=== PATIENT | female | born 1980 | race Caucasian/White ===

== ENCOUNTER 2022-06-19 17:25 | Emergency (ER) | payer OTHER, SELFPAY ==
[2022-06-19 17:33] VITALS: BP 133/87; PULSE 89; RESP 16; TEMP 36.6; O2SAT 99
--- NOTE | 2022-06-19 17:33 | ED.LOWEXIN ---
HPI - Extremity Injury (Lower) General Chief Complaint: Skin/Abscess/Foreign Body Stated Complaint: Rt leg pain and swelling Time Seen by Provider: 06/19/22 17:34 Source: patient and RN notes reviewed History of Present Illness HPI Narrative: Patient is a 41-year-old female presents the urgent care with complaints of cellulitis to the right leg. Patient states that 1 week ago she was stung by a wasp and then proceeded to swim in [facility]. Patient states that 24 hours ago she was placed on ciprofloxacin by her primary care doctor. States that she called them last night telling them that the redness and swelling was getting larger and they advise she go to the emergency room. Patient states that the pain has increased slightly and the redness has spread. Denies any shortness of breath or chest pain. Denies of any history of DVT. Denies any fevers, nausea or vomiting. No other acute complaints. No acute distress noted. Patient read the plan of care. Some parts of this dictation were generated by voice recognition software and may contain typographical and/or grammatical inaccuracies. Related Data Home Medications Medication Instructions Recorded Confirmed clindamycin HCl 300 mg capsule 300 mg PO TID 06/19/22 06/19/22 Allergies Allergy/AdvReac Type Severity Reaction Status Date / Time No Known Allergies Allergy Verified 06/19/22 17:35 Review of Systems Review of Systems: CONSTITUTIONAL: Denies fever, chills, or sweats. EYES: Denies visual changes, redness, or discharge. ENT: Denies rhinorrhea, congestion, sore throat, or otalgia. CARDIOVASCULAR: Denies chest pain, palpitations, or edema. RESPIRATORY: Denies cough or dyspnea. GASTROINTESTINAL: Denies abdominal pain, nausea, vomiting, or diarrhea. GENITOURINARY: Denies dysuria or hematuria. SKIN: Denies rash or itching. MUSCULOSKELETAL: Reports of pain, swelling and redness to the right leg NEUROLOGIC: Denies headache, numbness, or weakness. All other systems reviewed are negative, except as documented in HPI. PMFSH Comments At the time of my signature, I reviewed and agree with the nursing past medical, surgical, social, and family history. There is no relevant family history pertinent to the patient complaint. Exam Narrative: GENERAL: This is a well-nourished, well-developed patient, in no apparent distress. HEAD: normocephalic, atraumatic. EYES: PERRL. Sclera clear/white. Vision is grossly intact. EARS: External ears normal NOSE: External nose normal with no obvious nasal discharge, nares without redness, no rhinorrhea. THROAT: Mucous membranes moist NECK: Neck supple CARDIOVASCULAR: Regular rate and rhythm without murmurs, gallops, or rubs. RESPIRATORY: Clear to auscultation. Breath sounds equal bilaterally. No wheezes, rales, or rhonchi. SKIN: 17 x 14 cm area of irregular mildly edematous erythema to the lateral aspect of the right lower leg. Warm, intact with no suspicious lesions or rash, good texture and turgor. NEURO: awake, alert, and oriented to person, place and time. There were no obvious focal neurologic abnormalities. EXTREMITIES: 13.5 cm circumference of the right calf. No pitting edema. Positive strong right pedal pulse with capillary refill less than 2 seconds. Course Course Level of Care: Express Care Visit Vital Signs Vital signs: Vital Signs Temperature 97.9 F 06/19/22 17:33 Pulse Rate 89 06/19/22 17:33 Respiratory Rate 16 06/19/22 17:33 Blood Pressure 133/87 06/19/22 17:33 Pulse Oximetry 99 06/19/22 17:33 Oxygen Delivery Room Air 06/19/22 17:33 Temperature 97.9 F 06/19/22 17:33 Pulse Rate 89 06/19/22 17:33 Respiratory Rate 16 06/19/22 17:33 Blood Pressure 133/87 06/19/22 17:33 Pulse Oximetry 99 06/19/22 17:33 Oxygen Delivery Room Air 06/19/22 17:33 Reviewed MDM - Extremity Injury (Lower) MDM Narrative Medical decision making narrative: Advised patient to stop the clindamycin.
== END 2022-06-19 17:58 | disposition home or self-care (01) ==
PROVIDERS: Emergency Provider Nurse Practitioner Family; PCP Nurse Practitioner
DX: L03.115 Cellulitis of right lower limb (principal)
CPT/HCPCS: 99203; G0463

== ENCOUNTER 2025-05-29 10:32 | Emergency (ER) | payer SELFPAY ==
[2025-05-29 10:42] VITALS: BP 129/81; PULSE 71; RESP 18; TEMP 36.2; O2SAT 100
[2025-05-29 11:25] LABS: EDCOVIDSCREEN Negative (Negative); EDINFLUASCREEN Negative (Negative); EDINFLUBSCREEN Negative (Negative)
--- NOTE | 2025-05-29 11:30 | ED_ITS ---
HPI - URI/Sore Throat General Chief Complaint: Skin/Abscess/Foreign Body Stated Complaint: Face Pain Source: patient Mode of arrival: ambulatory Limitations: no limitations History of Present Illness HPI Narrative: Patient is a 44-year-old female who presents to the clinic with complaints with left-sided jaw pain and fatigue x 2 days. She states that last week she was told she had a swollen lymph node on the left side of her neck and a sore throat, but the sore throat has subsided since. She also endorses the lymph node is smaller than last week. She states that she has been taking Tylenol and ibuprofen ove [id number], but has had minimal relief. Denies any shortness of breath, difficulty swallowing, fevers, chills, nausea, vomiting, or diarrhea. Related Data Home Medications ?Medication ?Instructions ?Recorded ?Confirmed ?Last Taken ?Type No Home Medications 05/29/25 05/29/25 Unknown History Allergies Allergy/AdvReac Type Severity Reaction Status Date / Time No Known Allergies Allergy Verified 05/29/25 10:39 Review of Systems Review of Systems: CONSTITUTIONAL: Denies body aches, fever, chills, or sweats. EYES: Denies visual changes, redness, or discharge. ENT: Denies rhinorrhea, congestion, sore throat, or otalgia. Reports left- sided jaw pain and swollen lymph node to the left side.. CARDIOVASCULAR: Denies chest pain, palpitations, or edema. RESPIRATORY: Denies cough or dyspnea. GASTROINTESTINAL: Denies abdominal pain, nausea, vomiting, or diarrhea. GENITOURINARY: Denies dysuria or hematuria. SKIN: Denies rash, itching, or wounds. MUSCULOSKELETAL: Denies back pain, joint pain, or myalgia. NEUROLOGIC: Denies headache, numbness, tingling, or weakness. PSYCH: Denies depression or anxiety. All systems reviewed & are unremarkable except as noted in HPI and below PMFSH Comments At time of signature, I have reviewed and agree with nursing past medical, surgical, social and family history unless otherwise noted. Please see nursing chart for further information. There is no relevant family history pertinent to the presenting complaint. Exam Narrative: GENERAL: Well-appearing, well-nourished, and in no acute distress. EYES: EOMI. No redness or drainage. Conjunctivae normal. ENT: Mucous membranes pink and moist. Nares clear. No rhinorrhea. TMs fluid filled but intact. No throat erythema or tonsillar exudate, uvula midline. No drooling, no hoarseness, no trismus. No tripod positioning, hot potato voice, or soft palate swelling. NECK: Normal AROM. Supple. Lymphadenopathy noted to left anterior cervical chain with tenderness to palpation. CHEST: No respiratory distress. Clear to auscultation. HEART: Regular rate and rhythm. No murmur appreciated. Normal peripheral pulses. ABDOMEN: Soft, nontender, nondistended, normal active bowel sounds. SKIN: Warm, dry, no rash. Capillary refill normal. Normal skin turgor. NEURO: No focal deficits. Alert and oriented x3. Gait steady. PSYCH: Normal affect. No signs of depression or anxiety. Course Course Level of Care: Express Care Visit Vital Signs Vital signs: Vital Signs Temperature 97.2 F L 05/29/25 10:42 Pulse Rate 71 05/29/25 10:42 Respiratory Rate 18 05/29/25 10:42 Blood Pressure 129/81 05/29/25 10:42 Pulse Oximetry 100 05/29/25 10:42 Oxygen Delivery Room Air 05/29/25 10:42 Temperature 97.2 F L 05/29/25 10:42 Pulse Rate 71 05/29/25 10:42 Respiratory Rate 18 05/29/25 10:42 Blood Pressure 129/81 05/29/25 10:42 Pulse Oximetry 100 05/29/25 10:42 Oxygen Delivery Room Air 05/29/25 10:42 Reviewed MDM - URI/Sore Throat MDM Narrative Medical decision making narrative: Discussed physical exam findings. Flu/ Covid negative. [place] offered, but patient declined. Symptoms likely viral etiology. No prescription medications indicated at this time. Advised supportive measures and signs/symptoms to go to the ER. Pt is appropriate for outpatient treatment and follow up. Differential Diagnosis Differential diagnosis: Likely upper respiratory infection and viral infection Lab Data Attestation: I reviewed the patient's lab results. Labs: Lab Results 05/29/25 Range/Units 11:23 POC Influenza A Ag Negative (Negative) POC Influenza B Ag Negative (Negative) POC SARS CoV-2 Ag Negative (Negative) Critical Care Time Critical Care Time Critical Care Time: No Discharge Plan Discharge Clinical Impression: Upper respiratory infection Qualifiers: URI type: unspecified URI Qualified Code(s): J06.9 - Acute upper respiratory infection, unspecified Patient Disposition: Home Condition: Stable Instructions: Upper Respiratory Infection (DC) Additional Instructions: Recommend Flonase spray and Zyrtec (or Claritin/Moni) Tylenol every 8 hours as needed for pain Symptomatic treatment includes: rest, fluids, and increase humidity of the air at home. Follow up with your primary care provider in 1 week. Go to the ER for worsening symptoms or concerns. Patient Language: Tuvaluan Prescriptions: No Action No Home Medications Follow-up/Referrals: Kobe,MADDISON Ram [Primary Care Provider] - Time of Disposition: 11:31
== END 2025-05-29 11:33 | disposition home or self-care (01) ==
PROVIDERS: PCP Nurse Practitioner
DX: J06.9 Acute upper respiratory infection, unspecified (principal); Z20.822 Contact with and (suspected) exposure to COVID-19
CPT/HCPCS: 87426; 87804; 99212; G0463